=== PATIENT | female | born 1985 | race Caucasian/White ===

== ENCOUNTER 2018-02-22 21:06 | Emergency (ER) | payer OTHER ==
[~2018-02-22 21:06] MED LIST: ACY200L GT; CEPH-312 PO; CET10 PO; LOR5/325 PO
[2018-02-22] MEDS ORDERED: methylPREDNIS SUCC 125 MG/2ML IVP ONE (21:25)
[2018-02-22] MEDS ORDERED: ALBUTEROL/IPRATROPIUM 3 ML NEB NEB ONE (21:25)
[2018-02-22 21:33] LABS: PLATELET COUNT, AUTOMATED 282 K/uL (150-450)
--- NOTE | 2018-02-22 21:46 | ER Report ---
History and Physical Time Seen By MD: 21:33 Hx. 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 HPI/ROS CHIEF COMPLAINT: Difficulty breathing HISTORY OF PRESENT ILLNESS: 32-year-old female presents ambulatory to the ER, noting difficulty breathing. She was working with an epoxy compound, but wears a respirator. She notes she's been having symptoms off and on for several weeks. She describes some intermittent fever and chills. She reports a fever earlier today 101.2. She notes some intermittent coughing. She's been seen at urgent care and by her primary María Brand. She was told that she is having bronchospasm related to her illnesses and epoxy fume exposure. Patient took a Benadryl at home prior to coming tonight which improved her symptoms. REVIEW OF SYSTEMS: Respiratory: As above Cardiovascular: No chest pain, no palpitations. Gastrointestinal: No vomiting, no abdominal pain. Musculoskeletal: No back pain. Allergies: Coded Allergies: No Known Drug Allergies (Unverified , 09/04/17) Home Meds Active Scripts Prednisone (PREDNISONE) 20 Mg Tablet, 20 MG PO QDAY for reduce lung inflammation, #9 2 By mouth daily for 3 days then 1 by mouth daily for 3 days Prov:LIONEL CLAYTON DO 02/22/18 Reported Medications Escitalopram Oxalate (LEXAPRO) 20 Mg Tablet, 20 MG PO QDAY, TAB 02/22/18 Acyclovir (ACYCLOVIR (OR EQUIV)) 200 Mg/5 Ml Susp, 400 MG GT QID 05/31/11 Cephalexin (CEPHALEXIN) 500 Mg Capsule, 500 MG PO TID 05/31/11 Acetaminophen/Hydrocodone (Lortab 5/325 Mg) 5 Mg/325 Mg Tab, 1 TAB PO Q4-6H 05/31/11 Cetirizine Hcl (Zyrtec) 10 Mg Tab, 10 MG PO QDAY 05/31/11 Reviewed Nurses Notes: Yes Old Medical Records Reviewed: Yes Hx Smoking: No Hx Substance Use Disorder: No Hx Alcohol Use: Yes (occ.) Constitutional Vital Sign - Last 24 Hours 02/22/18 02/22/18 02/22/18 02/22/18 21:11 21:11 21:25 21:30 Temp 98.6 Pulse 93 Resp 21 B/P (MAP) 110/92 (98) 110/92 110/83 (92) Pulse Ox 97 O2 Delivery Room Air O2 Flow Rate 5.0 02/22/18 02/22/18 02/22/18 02/22/18 21:35 21:35 21:36 22:00 Pulse 103 94 Resp 20 48 B/P (MAP) 119/86 (97) Pulse Ox 90 90 O2 Delivery Room Air 02/22/18 02/22/18 02/22/18 02/22/18 22:06 22:30 22:36 23:00 Pulse 104 Resp 23 B/P (MAP) 117/77 (90) 106/73 (84) Pulse Ox 91 98 95 02/22/18 02/22/18 23:30 23:36 B/P (MAP) 110/79 (89) Pulse Ox 93 92 Physical Exam Vital signs stable, afebrile, pulse ox 83% on room air General Appearance: The patient is alert, has no immediate need for airway protection and no current signs of toxicity. Mild respiratory distress HEENT: Pupils equal and round no injection. TMs normal, oropharynx without redness or exudate, mucous. Membranes are moist Respiratory: Chest is non tender, lungs are clear to auscultation. No wheezing or rails Cardiac: regular rate and rhythm Gastrointestinal: Abdomen is soft and non tender, no masses, bowel sounds normal. Musculoskeletal: Neck: Neck is supple and non tender. No lymphadenopathy Extremities have full range of motion and are non tender. Skin: No rashes or lesions. DIFFERENTIAL DIAGNOSIS: After history and physical exam differential diagnosis was considered for adult fever including but not limited to viral syndromes including influenza, urinary tract infection, pneumonia and sepsis. Medical Decision Making Data Points Result Diagram: 02/22/18211602/22/182116 Laboratory Hematology Test 02/22/18 21:17 02/22/18 21:31 Red Blood Count 5.18 M/uL (4.17-5.56) Mean Corpuscular Volume 88.9 fL (80.0-96.0) Mean Corpuscular Hemoglobin 30.7 pg (26.0-33.0) Mean Corpuscular Hemoglobin Concent 34.5 g/dL (32.0-36.0) Red Cell Distribution Width 13.6 % (11.5-14.5) Mean Platelet Volume 8.2 fL (7.2-11.1) Neutrophils (%) (Auto) 73.2 % (39.4-72.5) Lymphocytes (%) (Auto) 19.3 % (17.6-49.6) Monocytes (%) (Auto) 5.3 % (4.1-12.4) Eosinophils (%) (Auto) 1.7 % (0.4-6.7) Basophils (%) (Auto) 0.5 % (0.3-1.4) Nucleated RBC Relative Count (auto) 0.2 /100WBC Neutrophils # (Auto) 5.6 K/uL (2.0-7.4) Lymphocytes # (Auto) 1.5 K/uL (1.3-3.6) Monocytes # (Auto) 0.4 K/uL (0.3-1.0) Eosinophils # (Auto) 0.1 K/uL (0.0-0.5) Basophils # (Auto) 0.0 K/uL (0.0-0.1) Nucleated RBC Absolute Count (auto) 0.01 K/uL D-Dimer Quantitative (PE/DVT) 1.14 ug/ml (0-0.50) Sodium Level 139 mmol/L (137-145) Potassium Level 3.9 mmol/L (3.5-5.0) Chloride Level 107 mmol/L (98-107) Carbon Dioxide Level 20 mmol/L (22-31) Blood Urea Nitrogen 16 mg/dl (7-18) Creatinine 0.60 mg/dl (0.52-1.04) Glomerular Filtration Rate Calc > 60.0 Random Glucose 102 mg/dl (75-110) Lactate 1.8 mmol/L (0.7-2.1) Calcium Level 9.8 mg/dl (8.4-10.2) Total Bilirubin 0.5 mg/dl (0.2-1.3) Aspartate Amino Transf (AST/SGOT) 18 U/L (0-35) Alanine Aminotransferase (ALT/SGPT) 21 U/L (0-56) Alkaline Phosphatase 93 U/L (0-126) Troponin I 0.014 ng/ml B-Type Natriuretic Peptide 21 pg/ml (0-100) Total Protein 7.2 g/dl (6.3-8.2) Albumin 4.0 g/dl (3.5-5.0) Human Chorionic Gonadotropin, Qual Negative (NEGATIVE) Influenza Virus Type A (PCR) Negative (NEGATIVE) Influenza Virus Type B (PCR) Negative (NEGATIVE) Chemistry Test 02/22/18 21:17 02/22/18 21:31 White Blood Count 7.6 k/uL (4.5-11.0) Red Blood Count 5.18 M/uL (4.17-5.56) Hemoglobin 15.9 g/dL (12.0-16.0) Hematocrit 46.0 % (34.0-47.0) Mean Corpuscular Volume 88.9 fL (80.0-96.0) Mean Corpuscular Hemoglobin 30.7 pg (26.0-33.0) Mean Corpuscular Hemoglobin Concent 34.5 g/dL (32.0-36.0) Red Cell Distribution Width 13.6 % (11.5-14.5) Platelet Count 282 K/uL (150-450) Mean Platelet Volume 8.2 fL (7.2-11.1) Neutrophils (%) (Auto) 73.2 % (39.4-72.5) Lymphocytes (%) (Auto) 19.3 % (17.6-49.6) Monocytes (%) (Auto) 5.3 % (4.1-12.4) Eosinophils (%) (Auto) 1.7 % (0.4-6.7) Basophils (%) (Auto) 0.5 % (0.3-1.4) Nucleated RBC Relative Count (auto) 0.2 /100WBC Neutrophils # (Auto) 5.6 K/uL (2.0-7.4) Lymphocytes # (Auto) 1.5 K/uL (1.3-3.6) Monocytes # (Auto) 0.4 K/uL (0.3-1.0) Eosinophils # (Auto) 0.1 K/uL (0.0-0.5) Basophils # (Auto) 0.0 K/uL (0.0-0.1) Nucleated RBC Absolute Count (auto) 0.01 K/uL D-Dimer Quantitative (PE/DVT) 1.14 ug/ml (0-0.50) Glomerular Filtration Rate Calc > 60.0 Lactate 1.8 mmol/L (0.7-2.1) Calcium Level 9.8 mg/dl (8.4-10.2) Total Bilirubin 0.5 mg/dl (0.2-1.3) Aspartate Amino Transf (AST/SGOT) 18 U/L (0-35) Alanine Aminotransferase (ALT/SGPT) 21 U/L (0-56) Alkaline Phosphatase 93 U/L (0-126) Troponin I 0.014 ng/ml B-Type Natriuretic Peptide 21 pg/ml (0-100) Total Protein 7.2 g/dl (6.3-8.2) Albumin 4.0 g/dl (3.5-5.0) Human Chorionic Gonadotropin, Qual Negative (NEGATIVE) Influenza Virus Type A (PCR) Negative (NEGATIVE) Influenza Virus Type B (PCR) Negative (NEGATIVE) Coagulation Test 02/22/18 21:17 D-Dimer Quantitative (PE/DVT) 1.14 ug/ml EKG/Imaging EKG Interpretation 12 lead EK Rhythm: normal sinus rhythm [place]: normal QRS: normal ST segments: Nonspecific T wave abnormality, no old EKGs for comparison Imaging Results: CT scan of the CTA pulmonary angiogram was obtained. The results of the study are EXAMINATION: CT CHEST PULMONARY ANGIOGRAM COMPARISON: None available HISTORY: dyspnea PROCEDURE: Pulmonary arterial phase imaging of the chest with 75 mL intravenous Isovue 370. Reconstruction of the source data set includes multiplanar 2D in the sagittal and coronal planes, and 3D reconstructed coronal slab MIP series. One of the following dose optimization techniques was utilized in the performance of this exam: Automated exposure control; adjustment of the mA and/or kV according to the patient's size; or use of an iterative reconstruction technique. Specific details can be referenced in the facility's radiology CT exam operational policy. FINDINGS: Pulmonary vasculature: There is good contrast opacification of the pulmonary arterial system. No pulmonary embolism. Main pulmonary artery size is normal. Cardiac and mediastinum: Cardiac chamber size is normal. No pericardial effusion. No thoracic aortic aneurysm or dissection. Age-appropriate anterior mediastinal thymus. Lymph nodes: Negative. Lungs and pleura: Lung base mild atelectasis. No consolidation or nodule. No pneumothorax, edema, or effusion. Airways: Negative. Upper abdomen: Negative. Osseous structures: Negative. IMPRESSION: No pulmonary embolism or evidence of acute cardiopulmonary disease. The study was read by the radiologist. I viewed the images myself on the PACS system. ED Course/Re-evaluation Clinical Indication for ER IV: IV Access ED Course Patient was admitted to an examination room. H&P was done. The differential diagnoses was considered. On clinical examination. Patient has mild respiratory difficulty. Her pulse ox is borderline at 88%. She drifts down to 83% occasionally. She's placed on supplemental O2. Diagnostic evaluation is undertaken. She has no wheezing, no airway swelling. Patient took Benadryl at home. Her symptoms have improved. She notes restriction of her breathing. She's been seen before dispensed an inhaler. Patient's treated with IV access, Solu-Medrol 125 mg, DuoNeb. Patient's diagnostic studies return. An elevated d-dimer of 1.14. The chest x-rays changed to a CTA pulmonary angiogram. CTA pulmonary and read as negative for pulmonary embolism. There is no evidence of infiltrate or effusion. Patient's improved. Her room. Her pulse ox is adequate. Patient has no respiratory distress. She is discharged home. She has an inhaler. She is given a prednisone taper. She is advised Benadryl 25 mg 3 times daily. I suspect she is having an allergic reaction to the epoxy that she's been working with. She is advised to avoid contact with epoxy odor and fumes until she follows up with her primary care doctor. Decision to Disposition Date: Feb 22, 2018 Decision to Disposition Time: 23:13 Depart Departure Latest Vital Signs Vital Signs Date Time Temp Pulse Resp B/P (MAP) Pulse Ox O2 Delivery O2 Flow Rate FiO2 02/22/18 23:36 92 02/22/18 23:30 110/79 (89) 02/22/18 22:06 104 23 02/22/18 21:35 Room Air 02/22/18 21:25 5.0 02/22/18 21:11 98.6 Impression: Primary Impression: Allergic reaction Additional Impression: Bronchospasm Condition: Improved Disposition: HOME OR SELF-CARE New Scripts Prednisone (PREDNISONE) 20 Mg Tablet 20 MG PO QDAY for reduce lung inflammation, #9 2 By mouth daily for 3 days then 1 by mouth daily for 3 days Prov: LIONEL CLAYTON DO 02/22/18 Patient Instructions: Bronchospasm (ED), General Allergic Reaction (ED) Additional Instructions: Take Benadryl 25 mg every 6-8 hours as needed for flushing or itching Follow-up with primary care if unimproved in 3-5 days Return to the ER for any worsening Problem Qualifiers Primary Impression: Allergic reaction Encounter type: initial encounter Qualified Codes: T78.40XA - Allergy, unspecified, initial encounter LIONEL CLAYTON DO Feb 22, 2018 21:45
[2018-02-22] MEDS ORDERED: ESCI20TA38 PO (21:47)
--- NOTE | 2018-02-22 21:48 | EKG ---
FACILITY: [facility] - [place] PATIENT NAME: ERNESTINA MAS : [id number] MR: [id number] V: [id number] EXAM DATE: ORDERING PHYSICIAN: LIONEL CLAYTON TECHNOLOGIST: ANAHY Test Reason : DYSPNEA Blood Pressure : / mmHG Vent. Rate : 096 BPM Atrial Rate : 096 BPM P-R Int : 106 ms QRS Dur : 078 ms QT Int : 336 ms P-R-T Axes : 022 065 066 degrees QTc Int : 424 ms Sinus rhythm with short [place] Nonspecific T wave abnormality Abnormal ECG No previous ECGs available Confirmed by KRISSY BARLOW ([id number]) on 02/23/2018 6:33:36 AM Referred By: Confirmed By:KRISSY BARLOW
[2018-02-22] MEDS ORDERED: IOPAMIDOL 76% 150 ML INFUS BTL 150 ML ONE (22:04)
[2018-02-22] MEDS ORDERED: NS(*) 0.9% 50 ML BAG 50 ML ONE (22:05)
--- NOTE | 2018-02-22 23:05 | RADIOLOGY IMAGING REPORT ---
FACILITY: [facility] PATIENT NAME: Sharon Bentley : 1985 MR: [id number] V: [id number] EXAM DATE: [id number] ORDERING PHYSICIAN: LIONEL CLAYTON TECHNOLOGIST: Location: [facility] - [place] Patient: Sharon Bentley : 1985 Visit/Account:[id number] Date of Sevice: 02/22/2018 EXAMINATION: CT CHEST PULMONARY ANGIOGRAM COMPARISON: None available HISTORY: dyspnea PROCEDURE: Pulmonary arterial phase imaging of the chest with 75 mL intravenous Isovue 370. Reconstru ction of the source data set includes multiplanar 2D in the sagittal and coronal planes, and 3D recon structed coronal slab MIP series. One of the following dose optimization techniques was utilized in the performance of this exam: Autom ated exposure control; adjustment of the mA and/or kV according to the patient's size; or use of an i terative reconstruction technique. Specific details can be referenced in the facility's radiology C T exam operational policy. FINDINGS: Pulmonary vasculature: There is good contrast opacification of the pulmonary arterial system. No pul monary embolism. Main pulmonary artery size is normal. Cardiac and mediastinum: Cardiac chamber size is normal. No pericardial effusion. No thoracic aortic aneurysm or dissection. Age-appropriate anterior mediastinal thymus. Lymph nodes: Negative. Lungs and pleura: Lung base mild atelectasis. No consolidation or nodule. No pneumothorax, edema, or effusion. Airways: Negative. Upper abdomen: Negative. Osseous structures: Negative. IMPRESSION: No pulmonary embolism or evidence of acute cardiopulmonary disease. Report Dictated By: James Gross MD at 02/22/2018 10:49 PM Report E-Signed By: James Gross MD at 02/22/2018 10:58 PM [id number]
[2018-02-22] MEDS ORDERED: PRED20TA6 PO (23:17)
[2018-02-22 23:30] VITALS: BP 110/79
== END 2018-02-22 23:43 | disposition home or self-care (01) ==
LOC: ER 21:27
DX: T78.49XA Other allergy, initial encounter (principal); J98.01 Acute bronchospasm; R94.31 Abnormal electrocardiogram [ECG] [EKG]
CPT/HCPCS: 71275; 83605; 83880; 84484; 84703; 85025; 85379; 87040; 87502; 93005; 94640; 96374; 99284; J2930; J7050; J7620; Q9967; 82040; 82247; 82310; 82374; 82435; 82565; 82947; 84075; 84132; 84155; 84295; 84450; 84460; 84520